=== PATIENT | male | born 1975 | race Hispanic/Latino ===

== ENCOUNTER 2021-12-15 12:00 | Emergency (ER) | payer BC ==
[~2021-12-15] VITALS: Ht 172.7 cm; Wt 88.5 kg
[2021-12-15 12:03] VITALS: BP 156/73
== END 2021-12-15 15:20 | disposition left against medical advice (07) ==
LOC: EDH 12:00
DX: M25.512 Pain in left shoulder (principal); Z53.21 Procedure and treatment not carried out due to patient leaving prior to being seen by health care provider